=== PATIENT | male | born 1970 | race Caucasian/White ===

== ENCOUNTER 2018-02-25 01:49 | Emergency (ER) | payer OTHER ==
[~2018-02-25 01:49] MED LIST: LOR5/325 PO; RIVA20TA PO
--- NOTE | 2018-02-25 02:06 | ER Report ---
History and Physical Time Seen By MD: 02:03 Hx. of Stated Complaint: patient states that he has right sided chest pain that radiates to his right side and back HPI/ROS CHIEF COMPLAINT: chest pain HISTORY OF PRESENT ILLNESS: This is a 47 year old male. He is having chest pain, Sharp pain on right side, radiating to right side and back. Worse with breathing. Just like when he had his PE in the past. Started about 1800, no relief. No fever or chills. No cough or recent illness. Having some nausea and lightheaded. Allergies: Coded Allergies: cefazolin (Verified Allergy, Unknown, 02/25/18) Home Meds Active Scripts Oxycodone Hcl/Acetaminophen (PERCOCET 5-325 MG TABLET) 1 Each Tablet, 1 EACH PO Q4H PRN for PAIN, #12 TAB 0 Refills Prov:NAZANIN RUST MD 02/25/18 Rivaroxaban 15 Mg (XARELTO 15 MG) 15 Mg Tablet, 15 MG PO BID, #42 TAB 0 Refills Prov:NAZANIN RUST MD 02/25/18 Discontinued Scripts Hydrocodone Bit/Acetaminophen (HYDROCODON-ACETAMINOPHEN 5-325) 1 Each Tablet, 0.5-1 EACH PO Q4-6H PRN for PAIN, #12 TAB 0 Refills TAKE ONE TABLET BY MOUTH EVERY 4-6 HOURS NEEDED FOR PAIN Prov:NAZANIN RUST MD 12/09/15 Rivaroxaban 20 Mg (XARELTO 20 MG) 20 Mg Tablet, 20 MG PO QDAY, #30 TAB 0 Refills Prov:NAZANIN RUST MD 12/09/15 Reviewed Nurses Notes: Yes Hx Smoking: No Exposure to Second Hand Smoke?: No Hx Substance Use Disorder: No Hx Alcohol Use: Yes (occ.) Constitutional Vital Sign - Last 24 Hours 02/25/18 02/25/18 02/25/18 02/25/18 01:49 01:52 01:55 02:06 Temp 98.6 Pulse ??? 70 Resp 23 B/P (MAP) 131/79 131/79 (96) 75/45 (55) Pulse Ox 92 O2 Delivery Room Air 02/25/18 02/25/18 02/25/18 02/25/18 02:19 02:30 02:32 02:57 Pulse 62 B/P (MAP) 112/66 (81) 114/69 (84) O2 Flow Rate 2.0 02/25/18 02/25/18 02/25/18 02/25/18 03:02 03:07 03:30 03:37 Pulse 68 66 72 Resp 14 17 7 B/P (MAP) 111/65 (80) Pulse Ox 96 96 95 Physical Exam General Appearance: The patient is alert. No acute distress. Eyes: Pupils are equal, round. No pallor, injection or icterus. ENT: Mucous membranes are moist. Neck: Supple and non tender. Respiratory: Lungs are clear. No rales or rhonchi. Has pain with deep breaths. There are no retractions or accessory muscle use. Cardiovascular: Regular rate and rhythm. No murmurs, gallops or rubs. Normal capillary refill. Has trace edema bilateral ankles, chronic for him. Gastrointestinal: Abdomen is soft and non tender. Nondistended. Normal active bowel sounds. Neurological: Alert and oriented x3. DIFFERENTIAL DIAGNOSIS: After history and physical exam, differential diagnosis was considered for chest pain including but not limited to myocardial ischemia, pericarditis pulmonary embolus, chest wall pain, pleural inflammation and pulmonary infectious causes. Medical Decision Making Data Points Result Diagram: 02/25/18 0203 02/25/18 0203 Laboratory Hematology Test 02/25/18 02:03 Red Blood Count 5.50 M/uL (4.00-5.60) Mean Corpuscular Volume 91.1 fL (80.0-96.0) Mean Corpuscular Hemoglobin 31.3 pg (26.0-33.0) Mean Corpuscular Hemoglobin Concent 34.4 g/dL (32.0-36.0) Red Cell Distribution Width 13.4 % (11.5-14.5) Mean Platelet Volume 8.2 fL (7.2-11.1) Neutrophils (%) (Auto) 77.2 % (39.4-72.5) Lymphocytes (%) (Auto) 14.1 % (17.6-49.6) Monocytes (%) (Auto) 7.9 % (4.1-12.4) Eosinophils (%) (Auto) 0.3 % (0.4-6.7) Basophils (%) (Auto) 0.5 % (0.3-1.4) Nucleated RBC Relative Count (auto) 0.0 /100WBC Neutrophils # (Auto) 7.8 K/uL (2.0-7.4) Lymphocytes # (Auto) 1.4 K/uL (1.3-3.6) Monocytes # (Auto) 0.8 K/uL (0.3-1.0) Eosinophils # (Auto) 0.0 K/uL (0.0-0.5) Basophils # (Auto) 0.1 K/uL (0.0-0.1) Nucleated RBC Absolute Count (auto) 0.00 K/uL Sodium Level 140 mmol/L (137-145) Potassium Level 3.5 mmol/L (3.5-5.0) Chloride Level 100 mmol/L (98-107) Carbon Dioxide Level 27 mmol/L (22-30) Blood Urea Nitrogen 21 mg/dl (9-21) Creatinine 1.00 mg/dl (0.66-1.25) Glomerular Filtration Rate Calc > 60.0 Random Glucose 112 mg/dl (75-110) Calcium Level 9.5 mg/dl (8.4-10.2) Total Bilirubin 0.9 mg/dl (0.2-1.3) Aspartate Amino Transf (AST/SGOT) 79 U/L (0-35) Alanine Aminotransferase (ALT/SGPT) 74 U/L (0-56) Alkaline Phosphatase 103 U/L (0-126) Troponin I < 0.012 ng/ml B-Type Natriuretic Peptide 9 pg/ml (0-100) Total Protein 8.7 g/dl (6.3-8.2) Albumin 5.0 g/dl (3.5-5.0) Chemistry Test 02/25/18 02:03 White Blood Count 10.1 k/uL (4.5-11.0) Red Blood Count 5.50 M/uL (4.00-5.60) Hemoglobin 17.2 g/dL (14.0-18.0) Hematocrit 50.1 % (42.0-52.0) Mean Corpuscular Volume 91.1 fL (80.0-96.0) Mean Corpuscular Hemoglobin 31.3 pg (26.0-33.0) Mean Corpuscular Hemoglobin Concent 34.4 g/dL (32.0-36.0) Red Cell Distribution Width 13.4 % (11.5-14.5) Platelet Count 265 K/uL (150-450) Mean Platelet Volume 8.2 fL (7.2-11.1) Neutrophils (%) (Auto) 77.2 % (39.4-72.5) Lymphocytes (%) (Auto) 14.1 % (17.6-49.6) Monocytes (%) (Auto) 7.9 % (4.1-12.4) Eosinophils (%) (Auto) 0.3 % (0.4-6.7) Basophils (%) (Auto) 0.5 % (0.3-1.4) Nucleated RBC Relative Count (auto) 0.0 /100WBC Neutrophils # (Auto) 7.8 K/uL (2.0-7.4) Lymphocytes # (Auto) 1.4 K/uL (1.3-3.6) Monocytes # (Auto) 0.8 K/uL (0.3-1.0) Eosinophils # (Auto) 0.0 K/uL (0.0-0.5) Basophils # (Auto) 0.1 K/uL (0.0-0.1) Nucleated RBC Absolute Count (auto) 0.00 K/uL Glomerular Filtration Rate Calc > 60.0 Calcium Level 9.5 mg/dl (8.4-10.2) Total Bilirubin 0.9 mg/dl (0.2-1.3) Aspartate Amino Transf (AST/SGOT) 79 U/L (0-35) Alanine Aminotransferase (ALT/SGPT) 74 U/L (0-56) Alkaline Phosphatase 103 U/L (0-126) Troponin I < 0.012 ng/ml B-Type Natriuretic Peptide 9 pg/ml (0-100) Total Protein 8.7 g/dl (6.3-8.2) Albumin 5.0 g/dl (3.5-5.0) EKG/Imaging EKG Interpretation 12 lead EKG: Rhythm: normal sinus rhythm, rate 66 [place]: normal QRS: normal ST segments: normal Imaging CT angiogram of the chest: Indication: Chest pain. History of pulmonary emboli. Technique: Helical CT was performed through the chest following IV contrast enhancement with 75 cc of Isovue 370. Multiplanar reconstructions and MIP images are reviewed. One of the following dose optimization techniques was utilized in the perfor miri of this exam: Automated exposure control; adjustment of the mA and/or kV according to the patient's size; or use of an iterative reconstruction technique. Specific details can be referenced in the facility's radiology CT exam operational policy. Comparison: The report of a study from 12/09/2015 is available for correlation. Images are not available. Pulmonary arteries: Multiple small/moderate-sized acute-appearing pulmonary emboli are present in the right lower lobe. There is a small embolus in the right middle lobe pulmonary artery. There appears to be a tiny embolus in the right upper lobe. Multiple small/moderate-sized acute appearing pulmonary emboli are present in the left lower lobe. No filling defects are observed in the large central pulmonary arteries. The RV/LV ratio is 0.94. There are no definite signs of right ventricular strain. Aorta and great vessels: There is uniform contrast enhancement. There are no signs of dissection or aneurysm. Heart and pericardial soft tissues: Within normal limits. Mediastinal soft tissues: Unremarkable. Lung huddleston: Linear parenchymal opacities are present in both lower lobes, likely related to atelectasis. In the right lower lobe, parenchymal infarction is not entirely excluded. Pleural spaces: There is no evidence of effusion, focal pleural thickening, or pneumothorax. Skeletal structures: Well mineralized and intact. No acute deformity is identified. Upper abdomen: Unremarkable. IMPRESSION: Bilateral acute-appearing pulmonary emboli. A preliminary report was called to Dr. Rust at [facility] [place] at 0315 hours. Report Dictated By: Davi Mendez MD at 02/25/2018 3:04 AM ED Course/Re-evaluation Clinical Indication for ER IV: IV Access ED Course CTA done as risk was high, and showed new PEs without right heart strain and non occlusive. Oxygen is okay on room air. Vitals signs stable. Pain controlled with 0.5mg of Dilaudid. Decision to Disposition Date: Feb 25, 2018 Decision to Disposition Time: 03:37 Depart Departure Latest Vital Signs Vital Signs Date Time Temp Pulse Resp B/P (MAP) Pulse Ox O2 Delivery O2 Flow Rate FiO2 02/25/18 03:37 72 7 95 02/25/18 03:30 111/65 (80) 02/25/18 02:32 2.0 02/25/18 01:52 98.6 Room Air Impression: Primary Impression: Pulmonary embolism Condition: Improved Disposition: HOME OR SELF-CARE New Scripts Oxycodone Hcl/Acetaminophen (PERCOCET 5-325 MG TABLET) 1 Each Tablet 1 EACH PO Q4H PRN for PAIN, #12 TAB 0 Refills Prov: NAZANIN RUST MD 02/25/18 Rivaroxaban 15 Mg (XARELTO 15 MG) 15 Mg Tablet 15 MG PO BID, #42 TAB 0 Refills Prov: NAZANIN RUST MD 02/25/18 Patient Instructions: Pulmonary Embolism (DC) Additional Instructions: Take Xarelto 15mg twice a day for [address] Eubanks's office later today to schedule a follow-up appointment. Return for worsening chest pain or shortness of breath. Problem Qualifiers Primary Impression: Pulmonary embolism Pulmonary embolism type: other Chronicity: acute Acute cor pulmonale presence: without acute cor pulmonale Qualified Codes: I26.99 - Other pulmonary embolism without acute cor pulmonale NAZANIN RUST MD Feb 25, 2018 02:06
[2018-02-25] MEDS ORDERED: NS(*) 0.9% 1000 ML BAG 1,000 ML IV ONE (02:12)
[2018-02-25] MEDS ORDERED: ONDANSETRON 4 MG/2 ML VIAL IVP ONE (02:15)
[2018-02-25] MEDS ORDERED: ASPIRIN 81 MG CHEW PO ONE (02:15)
[2018-02-25] MEDS ORDERED: HYDROMORPHONE HCL 1 MG/ML SYRINGE IVP ONE (02:15)
[2018-02-25 02:30] LABS: PLATELET COUNT, AUTOMATED 265 K/uL (150-450)
--- NOTE | 2018-02-25 03:29 | RADIOLOGY IMAGING REPORT ---
[place] [facility] [place] Singh Langford : 1970 MR: [id number] V: [id number] EXAM DATE: ORDERING PHYSICIAN: NAZANIN RUST TECHNOLOGIST: Location: [facility] - [place] Patient: Singh Langford : 1970 Visit/Account:[id number] Date of Sevice: 02/25/2018 CT angiogram of the chest: Indication: Chest pain. History of pulmonary emboli. Technique: Helical CT was performed through the chest following IV contrast enhancement with 75 cc of Isovue 370. Multiplanar reconstructions and MIP images are reviewed. One of the following dose optimization techniques was utilized in the performance of this exam: Autom ated exposure control; adjustment of the mA and/or kV according to the patient's size; or use of an i terative reconstruction technique. Specific details can be referenced in the facility's radiology CT exam operational policy. Comparison: The report of a study from 12/09/2015 is available for correlation. Images are not availab le. Pulmonary arteries: Multiple small/moderate-sized acute-appearing pulmonary emboli are present in the right lower lobe. There is a small embolus in the right middle lobe pulmonary artery. There appears to be a tiny embolus in the right upper lobe. Multiple small/moderate-sized acute appearing pulmonary emboli are present in the left lower lobe. No filling defects are observed in the large central pulmonary arteries. The RV/LV ratio is 0.94. The re are no definite signs of right ventricular strain. Aorta and great vessels: There is uniform contrast enhancement. There are no signs of dissection or a neurysm. Heart and pericardial soft tissues: Within normal limits. Mediastinal soft tissues: Unremarkable. Lung huddleston: Linear parenchymal opacities are present in both lower lobes, likely related to atelecta sis. In the right lower lobe, parenchymal infarction is not entirely excluded. Pleural spaces: There is no evidence of effusion, focal pleural thickening, or pneumothorax. Skeletal structures: Well mineralized and intact. No acute deformity is identified. Upper abdomen: Unremarkable. IMPRESSION: Bilateral acute-appearing pulmonary emboli. A preliminary report was called to Dr. Rust at [facility] [place] at 0315 hours. Report Dictated By: Davi Mendez MD at 02/25/2018 3:04 AM Report E-Signed By: Davi Mendez MD at 02/25/2018 3:25 AM [id number]
[2018-02-25 03:30] VITALS: BP 111/65
[2018-02-25] MEDS ORDERED: RIVAROXABAN 10 MG TAB PO ONE (03:35)
[2018-02-25] MEDS ORDERED: RIVA15TA PO (03:38)
[2018-02-25] MEDS ORDERED: OXYC-865 PO (03:38)
[2018-02-25] MEDS ORDERED: oxyCODONE/ACETAMIN 5/325MG TH 2 TAB/BOTTLE PO ONE (03:40)
--- NOTE | 2018-02-25 03:55 | EKG ---
FACILITY: [facility] - [place] PATIENT NAME: EDDIE BRITT : [id number] MR: [id number] V: [id number] EXAM DATE: ORDERING PHYSICIAN: NAZANIN LUONG TECHNOLOGIST: DOUGLAS Test Reason : CP Blood Pressure : / mmHG Vent. Rate : 066 BPM Atrial Rate : 066 BPM P-R Int : 200 ms QRS Dur : 092 ms QT Int : 424 ms P-R-T Axes : 064 078 041 degrees QTc Int : 444 ms Normal sinus rhythm No previous ECGs available Confirmed by Tucker Madrid ([id number]) on 02/25/2018 6:35:50 AM Referred By: Confirmed By:Tucker Connors
== END 2018-02-25 03:52 | disposition home or self-care (01) ==
LOC: ER 02:27
DX: I26.99 Other pulmonary embolism without acute cor pulmonale (principal)
CPT/HCPCS: 71275; 83880; 84484; 85025; 93005; 96361; 96374; 96375; 99284; J1170; J2405; J7030; Q9967; 82040; 82247; 82310; 82374; 82435; 82565; 82947; 84075; 84132; 84155; 84295; 84450; 84460; 84520

== ENCOUNTER → 2018-08-05 | Outpatient (CLI) | payer OTHER ==
[~2018-08-05] MED LIST changes: +OXYC-865 PO; +RIVA15TA PO
--- NOTE | 2018-08-05 16:35 | RADIOLOGY IMAGING REPORT ---
FACILITY: [facility] PATIENT NAME: Singh Langford : 1970 MR: [id number] V: [id number] EXAM DATE: [id number] ORDERING PHYSICIAN: ELIZABETH MCCOY TECHNOLOGIST: Location: [facility] [place] Patient: Singh Langford : 1970 Visit/Account:[id number] Date of Sevice: 08/05/2018 EXAMINATION: CT Head without intravenous contrast HISTORY: Chronic headache. TECHNIQUE: Axial images were obtained from the skull base to the vertex without intravenous contrast . Sagittal and coronal reformatted images are also submitted. One of the following dose optimization techniques was utilized in the performance of this exam: Autom ated exposure control; adjustment of the mA and/or kV according to the patient's size; or use of an i terative reconstruction technique. Specific details can be referenced in the facility's radiology C T exam operational policy. COMPARISON: None available. FINDINGS: Brain volume: Normal. Ventricles: Negative. Acute ischemic changes: None. Hemorrhage: None. Masses / edema: None. [place]ancino-white: Negative. White matter: Negative. Vessels: Negative. Extra-axial: Negative. Calvarium / skull base: Negative. Visualized sinuses / orbits: Negative. IMPRESSION: Normal noncontrast head CT. Report Dictated By: Gerson Hale MD at 08/05/2018 4:28 PM Report E-Signed By: Gerson Hale MD at 08/05/2018 4:31 PM [id number]
== END ==
LOC: CT 00:28
PROVIDERS: ATTEND Family Medicine
DX: R51 Headache (principal)
CPT/HCPCS: 70450

== ENCOUNTER 2018-12-15 11:25 | Outpatient (RCR) | payer OTHER ==
[2018-11-24 15:12] VITALS: BP 138/91
--- NOTE | 2018-11-25 04:56 | ONCOLOGY CONSULTATION ---
EVENT DATE: November 24, 2018 CHIEF COMPLAINT/REASON FOR VISIT Mr. Langford is a pleasant 47-year-old gentleman with recurrent pulmonary emboli, including one unprovoked, who is on chronic Eliquis therapy. He presents for initial consultation. HISTORY OF PRESENT ILLNESS Mr. Langford is a very pleasant 47-year-old adopted gentleman with no known family history, who presents to discuss his blood clot history. Approximately three to four years ago, he had a provoked DVT/PE after two long plane rides and was treated with a standard course of anticoagulation. He then, approximately a year later, had an unprovoked PE and was placed appropriately on chronic anticoagulation. No thrombophilia workup has been done to date, as it would not impact his treatment regimen. However, he has two children, and his family would like to get him tested so we can provide counseling to the rest of the family. Mr. Langford understands it would not impact our recommendation for continued anticoagulation. PAST MEDICAL HISTORY 1. Osteoarthritis, status post right hip replacement. 2. One provoked and one unprovoked pulmonary embolus. FAMILY HISTORY Adopted. SOCIAL HISTORY He is a professor here in town. and has presented with his . He has two children, aged 18 and 21. They both live locally. He has approximately one alcoholic beverage per day. Rare tobacco use. No drug use. REVIEW OF SYSTEMS CONSTITUTIONAL: No fevers, chills, weight change. HEENT: No headache, vision changes. CARDIOVASCULAR: No chest pain, dyspnea on exertion, edema. RESPIRATORY: No shortness of breath, wheeze, cough. GASTROINTESTINAL: No nausea, vomiting, diarrhea, constipation. GENITOURINARY: No dysuria, hematuria. MUSCULOSKELETAL: Positive right hip pain, recovering from surgery. NEUROLOGIC: No headache, deficits of any kind. HEMATOLOGIC: No bruising or bleeding. SKIN: No concerning rashes or lesions. Remainder of 14-point review of systems otherwise negative. MEDICATIONS 1. Eliquis. 2. Celebrex. PHYSICAL EXAMINATION VITAL SIGNS: Blood pressure 138/91, pulse 59, respiratory rate 16, temperature 96.4 Fahrenheit, oxygen saturation 92% on room air, weight 101.6 kg, pain 2/10, fatigue 2/10. GENERAL: Stable condition, resting comfortably in the chair. HEENT: Normocephalic, atraumatic. MUSCULOSKELETAL: Full exam deferred, but he is still using caution with the right leg. Mild edema related to this recent surgery. Remainder of physical exam otherwise unremarkable. IMPRESSION/REPORT/PLAN Mr. Langford is a pleasant 47-year-old gentleman with the followin. Recurrent pulmonary emboli with one provoked and one unprovoked event. The provoked event was due to prolonged air travel to [place]. Nothing else was unusual about this trip. The second blood clot was completely unprovoked, with no obvious predisposing factors. The recommendation for the patient has been indefinite anticoagulation. He is currently on Eliquis. He was originally on Xarelto, but that became too expensive, and so he is now switched to Eliquis for that reason alone. He is doing well with this. He has not had issues with bleeding. We discussed the pros and cons of this, including the risk of bleeding. There is not yet an FDA-approved agent for reversal; however, that is being studied, and we could access it in emergency. He understands that I have not yet needed to access it for any other patient. 2. With regard to thrombophilia testing, I do believe it is warranted. It would not change the duration of therapy for the patient, but would provide genetic counseling for his children. We will not check antiphospholipid antibody syndrome, as the Eliquis would create a false positive. We will interpret the antithrombin level with caution, as the Eliquis can falsely raise the level of antithrombin, and we could miss that diagnosis. With his recent surgery, factor VIII may be elevated, and so if this is the only finding, we may need to repeat it in three to six months. We will call him with results of his studies and provide counseling to his family. Answered all of their many questions today. BILLING New patient level 5. Total time 60 minutes, counseling time 35 minutes, high risk, high complexity. ROMEROD
[~2018-12-15 11:25] MED LIST changes: +APIX5TAB4 PO; +CELE-1 PO
[2018-12-15 11:42] VITALS: BP 131/88
[2018-12-15 13:45] LABS: PLATELET COUNT, AUTOMATED 200 K/uL (150-450)
== END 2019-01-07 12:19 | disposition home or self-care (01) ==
LOC: SPU 11:25
PROVIDERS: ATTEND Internal Medicine
DX: I26.99 Other pulmonary embolism without acute cor pulmonale (principal); Z79.01 Long term (current) use of anticoagulants
CPT/HCPCS: 36415; 81240; 81291; 82040; 82247; 82310; 82374; 82435; 82565; 82947; 83090; 84075; 84132; 84155; 84295; 84450; 84460; 84520; 85025; 85240; 85300; 85302; 85305; 85307; 99202